=== PATIENT | male | born 1935 | race Caucasian/White ===

== ENCOUNTER 2017-08-04 21:12 | Inpatient (IN) | END 2017-08-07 16:35 | disposition home or self-care (01) | DRG 194 ==

== ENCOUNTER 2017-08-10 14:02 | Outpatient (CLI) | END 2017-08-10 16:02 | disposition home or self-care (01) ==

== ENCOUNTER 2017-08-21 14:43 | Outpatient (CLI) | END 2017-08-21 16:27 | disposition home or self-care (01) ==